=== PATIENT | female | born 1990 | race Caucasian/White ===

== ENCOUNTER 2020-06-12 18:09 | Emergency (ER) | payer SELFPAY ==
[~2020-06-12] VITALS: Ht 154.9 cm; Wt 64.0 kg
[2020-06-12 19:00] VITALS: Ht 154.9 cm; Wt 64.0 kg
[2020-06-12] MEDS ORDERED: NAPROSYN500 MG PO (19:56)
[2020-06-12] MEDS ORDERED: ACETAMINOPHEN500 M5 PO (19:56)
[2020-06-12 21:13] VITALS: BP 106/66
== END 2020-06-12 21:13 | disposition home or self-care (01) ==
LOC: ED 18:09
DX: M54.2 Cervicalgia (principal); M54.5 Low back pain; Z88.5 Allergy status to narcotic agent; V49.9XXD Car occupant (driver) (passenger) injured in unspecified traffic accident, subsequent encounter
CPT/HCPCS: J1885; J2270